=== PATIENT | male | born 1970 | race Caucasian/White ===

== ENCOUNTER 2016-11-23 21:21 | Emergency (ER) | payer MEDICAID ==
[~2016-11-23] VITALS: Ht 180.3 cm; Wt 108.9 kg
[~2016-11-23 21:21] MED LIST: ALBUTEROL0.09 MG/Ac IN; AMOXICILLIN500 M2 PO; BACTRIM DS 8001 TA1 PO; BACTRIM DS 8001 TAB PO; BUSPAR5 MG PO; DICYCLOMINE HYD20 MG PO; FLEXERIL5 MG PO; GAS-X EXTRA ST125 M1 PO; IBU800 M1 PO; INDOCIN25 MG PO; KEFLEX 500MG.500 MG PO; LORTAB 5/500 501 TAB PO; MEDROL 4MG. DOSE4 MG PO; NAPROSYN 500MG500 MG PO; PAXIL20 MG NG; PERCOCET 5/3251 EACH PO; PHENERGAN 25MG.25 M1 PO; PREDNISONE 20MG20 MG PO; PRILOSEC OTC20 MG PO; PROZAC40 MG PO; SIMVASTATIN10 MG PO; TESSALON PERLE100 MG PO; ULTRAM50 MG PO; VICODIN 5/500 T1 TAB PO; VISTARIL25 MG PO; VOLTAREN75 MG PO; ZANTAC 150150 MG PO; ZOFRAN ODT4 MG PO
[2016-11-23 21:54] LABS: URINE BILIRUBIN - DIPSTICK NEGATIVE (NEG); URINE BLOOD 1+ (NEG)
[2016-11-23 22:24] LABS: HEMOGLOBIN 14.3 g/dL (14.1-18.0); LYMPH # 3.5 K/mm3 (0.7-4.5); LYMPH % 42.9 % (10-50)
--- NOTE | 2016-11-23 23:58 | Emergency Room Report ---
History of Present Illness Time Seen by [id number] Presenting Problem in Triage Pt arrived:Walked Presenting Problem:burning pain over recent operative site on right side of abdomen (hernia repair). Vomited x 1 at 2030. 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 N Clinical Suspician of Infection? N Mental Status: 1 - Regular (Normal Baseline) Sepsis Risk:Low Sepsis Risk Have you (or family members/close friends) recently traveled outside the [place]? N If Yes, where/when: Have you had exposure to infectious disease within the past month? N TB? Other? Specify: Source patient, RN notes reviewed, family, old records Exam Limitations no limitations Comment pt with umbilical pain inc tonight with no vomiting and no fever and had recent abd surg Cardiac Chest Pain Chest pain indicative of cardiac No Timing/Duration this evening Severity moderate ALLERGIES Coded Allergies: No Known Allergies (10/24/16) Home Medications Active Scripts Ondansetron (Zofran 4MG Odt) 4 MG PO Q8HP PRN NAUSEA AND VOMITING #10 ODT Prov: 09/25/16 Dicyclomine Hcl (Bentyl 20mg Tab (Generic)) 20 MG PO TIDP PRN abdominal pain, diarrhea #12 TAB Prov: 09/25/16 Reported Medications Buspirone Hcl (Buspirone HCl) 10 MG PO BID Simethicone (Gas-X Extra Strength) 375 MG PO ONCE History Medical History General CAD? No Angina: No VA: No Hypertension? Yes Hyperlipidemia? Yes CHF? No DVT? No PE? No COPD? No Asthma? No Anemia? No GERD? No Gastric ulcers? No GI Bleed? No Hernia? Yes Hypothyroidism? No CVA? Yes Seizures? No Diabetes? No Insulin Dependent: No Insulin Pump: No Home FSBS? Yes Renal Insuffiency? No End Stage Renal Disease? No UTI? No Stones? No BPH? No GB Disease: No Nephritic Syndrome? No Asplenia? No Hepatitis? No Sickle Cell Disease? No Arthritis? No Migraines? No Cataracts? No Glaucoma? No MRSA? No HIV? No TB? No Anxiety? No Depression? No Cancer? No More? No Immunization Hx DT/Tetanus Unknown Flu Refused Pneumonia Refuses Surgical Hx Previous Surgery?Y ATTEMPT REMOVAL OF PENCIL LEAD IN LT SIDE RIB AREA Family History Family Hx Diabetes Yes CAD Yes Hypertension Yes Hyperlipidemia Yes Cancer Yes TB No Social History Smoking Hx Smoker: Current Every Day Smoker Tobacco: Yes Type Cigarettes Packs/day < 1 Pack Alcohol Alcohol: No Drugs none Review of Systems All Other Systems Reviewed and Negative Constitutional denies fever Eyes denies drainage ENT denies: ear discharge, epistaxis, throat pain. Respiratory denies cough, denies shortness of breath, denies wheezing Cardiovascular denies chest pain, denies palpitations, denies syncope Gastrointestinal see HPI, abdominal pain, nausea, denies vomiting Genitourinary denies: dysuria, frequency, hesitancy, hematuria. Musculoskeletal denies back pain, denies joint pain, denies joint swelling, denies neck pain Skin denies rash Psychiatric/Neurological denies headache, denies seizure Physical Exam Vital Signs Vital Signs Date Time Temp Pulse Resp B/P Pulse O2 O2 Flow FiO2 Ox Delivery Rate 11/23 2351 98.8 72 14 104/75 95 11/23 2230 98.8 72 14 102/62 95 11/23 2200 14 11/23 2129 98.8 85 14 126/84 95 - WBC >12,000 or <4,000 or 10% bands? 2 or more SIRS Criteria Met? B/P:104/75 MAP:98 Creatinine >2.0? UA output<0.5ml/kg/hr for 2 hrs? Platelet count >100,000? Lactate >2.0mmol/1? INR >1.2 or PTT > than 60 sec? Evidence of Organ Dysfunction? Provider documented clinical suspician of infection? N Sepsis Criteria Count: 0 Sepsis Risk: Low Sepsis Risk General Appearance no apparent distress Eye Exam - bilateral eye PERRL, bilateral eye EOMI Ear, Nose, Throat normal ENT inspection Neck supple Respiratory Status No: respiratory distress. Lung Sounds bilateral: lungs clear. 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 No Results/Orders Laboratory Tests 11/23/162147: Sodium 141, Potassium 4.3, Chloride 102, Carbon Dioxide 30, BUN 14, Creatinine 0.9, Estimated Creat Clear 156, Estimated GFR (MDRD) 90, Glucose 101, Calcium 9.1, Total Bilirubin 0.3, AST 17, ALT 26, Alkaline Phosphatase 102, Total Protein 7.9, Albumin 4.5, Globulin 3.4 H, Albumin/Globulin Ratio 1.3, Amylase 51, Lipase 142 11/23/162144: WBC 8.2, RBC 4.76, Hgb 14.3, Hct 41.7 L, MCV 87.6, RDW 12.7, Plt Count 226, MPV 7.1 L, Gran % 48.1, Gran # 4.0, Lymphocytes % 42.9, Monocytes % 7.0, Eosinophils % 1.4, Basophils % 0.6, Lymphocytes # 3.5, Monocytes # 0.6, Eosinophils # 0.1, Basophils # 0.1, PUBS MCHC 34.3, MCH 30.1, Urine Color YELLOW , Urine Appearance CLEAR, Urine pH 7.5, Ur Specific Bolt 1.015, Urine Protein NEGATIVE, Urine Ketones NEGATIVE, Urine Blood 1+ H, Urine Nitrate NEGATIVE, Urine Bilirubin NEGATIVE, Urine Urobilinogen 0.2, Ur Leukocyte Esterase NEGATIVE , Urine RBC NONE, Urine WBC NONE, Ur Squamous Epith Cells NONE, Urine Bacteria TRACE, Urine Glucose NEGATIVE Current Medication Orders Sig/Gallo Start time Last Medication Dose Route Stop Time Status Admin Morphine Sulfate 4 MG ONCE ONE 11/24 14 DC IV 11/25 15 Ondansetron HCl 4 MG ONCE ONE 11/24 14 DC IV 11/25 15 Ketorolac 30 MG ONCE ONE 11/23 2199 DC 11/23 Tromethamine IV 11/23 Ketorolac 0 .STK-MED ONE 11/23 2144 DC Tromethamine .ROUTE Ondansetron HCl 4 MG ONCE ONE 11/23 2144 DC 11/23 IV 11/23 Ondansetron HCl 0 .STK-MED ONE 11/23 2144 DC .ROUTE Sodium Chloride 10 ML PRN PRN 11/23 2144 AC IV 11/25 2139 Sodium Chloride 1,000 ML .Q1H1M 11/23 2144 DC 11/23 IV 11/23 2244 2200 Sodium Chloride 10 ML PRN PRN 11/23 2144 AC IV 11/24 2141 Sodium Chloride 1,000 ML .STK-MED ONE 11/23 2144 DC IV Orders Procedure Date/time Status DIET-NOTHING BY MOUTH 11/[address] ABD & PELVIS W/O CONTRAST 11/[address] ABD/PELVIS REQ 11/23 2140 Active IV SALINE LOCK 11/23 2140 Active URINALYSIS/COMPLETE 11/23 2140 Complete LIPASE 11/23 2140 Complete CBC WITH AUTO DIFF 11/23 2140 Complete CHEM 12 PROFILE 11/23 2140 Complete AMYLASE 11/23 2140 Complete XRAY/CT/US XRAY/CT/US CT abdomen, pelvis CT interpretation by discussed w/radiologist Time results known: 0008 CT Results abnormal (see report) Departure Departure Time of Disposition 8 Disposition DC Home or Self Care(routine) Clinical Impression Primary Impression: Abdominal pain Qualifiers: Abdominal location: periumbilical Qualified Code: R10.33 - Periumbilical pain Condition STABLE Patient Instructions DI for Abdominal Pain-Adult Additional Instructions fluids and see dr lee for follow up Discharge Counseling Counseled pt/family regarding diagnosis, test results, medications/RX, follow up needs ED Critical Care Critical Care No at [id number]
[2016-11-24 01:19] VITALS: BP 117/67
--- NOTE | 2016-11-24 10:25 | RADIOLOGY REPORT PS360 ---
CT ABD PELVIS W/O CONTRAST CLINICAL INDICATION: Generalized abdominal pain, pain around incision site from recent hernia repair ABD PAIN ORDERING PHYSICIAN: Merle Jeronimo MD PATIENT AGE: 45 years COMPARISON: 09/25/2016 TECHNIQUE: Axial images obtained with sagittal and coronal reformats. PROCEDURE: Oral Contrast: None IV Contrast: None . FINDINGS: The lung bases are clear. The liver, gallbladder, spleen, adrenal glands, and pancreas are unremarkable. No hydronephrosis or ureteral calculus. There is a millimeter nonobstructing stone in the lower pole the left kidney. No intestinal obstruction or free air. Unremarkable appendix. No evidence of appendicitis, pelvic mass, or abnormal fluid collection. Scattered small lymph nodes are present within the mesenteric fat is 4 not significant change. There is prominent thickening of the periumbilical fat with minimal stranding in the fat deep to the umbilicus. A 1.7 cm area of soft tissue density is noted in the anterolateral abdominal wall nonspecific. No residual or recurrent hernia is evident. IMPRESSION: 1. Soft tissue thickening of the umbilicus and deep to the umbilicus with mild stranding of the intra-abdominal wall fat. This finding may be due to scarring and/or edema/inflammation. Soft tissue density noted in the right anterolateral abdominal wall was also be due to scar hematoma. 2. Otherwise negative CT abdomen pelvis
== END 2016-11-24 01:10 | disposition home or self-care (01) ==
LOC: ER 21:21
PROVIDERS: Emergency Medicine
DX: R10.33 Periumbilical pain (principal); I10 Essential (primary) hypertension; F17.210 Nicotine dependence, cigarettes, uncomplicated; Z86.73 Personal history of transient ischemic attack (TIA), and cerebral infarction without residual deficits; E78.5 Hyperlipidemia, unspecified
CPT/HCPCS: J2405

== ENCOUNTER → 2017-01-03 | Outpatient (CLI) | payer MEDICAID ==
[2017-01-03 19:16] LABS: AMPHETAMINES/METAMPHETAMINES NEGATIVE ng/mL (<1000)
== END ==
LOC: LAB 16:01
PROVIDERS: Nurse Practitioner Family
DX: Z79.899 Other long term (current) drug therapy (principal)